=== PATIENT | female | born 1995 ===

== ENCOUNTER 2022-01-29 10:19 | Outpatient (CLI) | payer OTHER | END 2022-01-29 13:20 | disposition home or self-care (01) | LOC: PRENATAL 10:19 | PROVIDERS: ATTEND Obstetrics & Gynecology Maternal & Fetal Medicine | DX: O36.80X0 Pregnancy with inconclusive fetal viability, not applicable or unspecified (principal); Z36.0 Encounter for antenatal screening for chromosomal anomalies; Z3A.12 12 weeks gestation of pregnancy ==

== ENCOUNTER 2022-03-23 12:44 | Outpatient (CLI) | payer OTHER | END 2022-03-23 14:20 | disposition home or self-care (01) | LOC: PRENATAL 12:44 | PROVIDERS: ATTEND Obstetrics & Gynecology Maternal & Fetal Medicine | DX: O35.0XX0 Maternal care for (suspected) central nervous system malformation in fetus, not applicable or unspecified (principal); O35.3XX0 Maternal care for (suspected) damage to fetus from viral disease in mother, not applicable or unspecified; O26.879 Cervical shortening, unspecified trimester; Z3A.20 20 weeks gestation of pregnancy ==

== ENCOUNTER → 2022-03-24 | Emergency (ER) | payer OTHER ==
[~2022-03-24] MED LIST: PRENATAL TABLE1 EAC1 PO
== END | disposition home or self-care (01) ==
LOC: ER 22:25
DX: O46.92 Antepartum hemorrhage, unspecified, second trimester (principal); Z3A.22 22 weeks gestation of pregnancy

== ENCOUNTER 2022-03-25 00:29 | Outpatient (CLI) | payer OTHER ==
[2022-03-25] MEDS ORDERED: PRENATAL TABLE1 EAC1 PO (00:34)
== END 2022-03-25 11:17 | disposition home or self-care (01) ==
LOC: OBS/DEL 00:29
PROVIDERS: ATTEND Student in an Organized Health Care Education/Training Program
DX: O46.8X2 Other antepartum hemorrhage, second trimester (principal); Z3A.22 22 weeks gestation of pregnancy; N93.0 Postcoital and contact bleeding

== ENCOUNTER 2022-06-20 08:14 | Outpatient (CLI) | payer OTHER | END 2022-06-20 10:00 | disposition home or self-care (01) | LOC: PRENATAL 08:14 | PROVIDERS: ATTEND Obstetrics & Gynecology Maternal & Fetal Medicine | DX: O26.849 Uterine size-date discrepancy, unspecified trimester (principal); O36.8199 Decreased fetal movements, unspecified trimester, other fetus; O32.9XX0 Maternal care for malpresentation of fetus, unspecified, not applicable or unspecified; Z3A.32 32 weeks gestation of pregnancy ==

== ENCOUNTER 2022-08-08 13:01 | Inpatient (IN) | payer OTHER ==
[~2022-08-08] VITALS: Ht 170.2 cm; Wt 68.5 kg
[2022-08-12] MEDS ORDERED: DOCUSATE SODIU100 MG PO (12:43)
[2022-08-12] MEDS ORDERED: IBUPROFEN800 MG PO (12:43)
[2022-08-12] MEDS ORDERED: ACETAMINOPHEN-1 EAC2 PO (12:43)
== END 2022-08-12 13:03 | disposition home or self-care (01) | DRG 788 ==
LOC: O/R 08-09 07:53 → OB/GYN 08-09 07:53
PROVIDERS: ADMIT Obstetrics & Gynecology; ATTEND Obstetrics & Gynecology
PROC: 4A1HXCZ Monitoring of Products of Conception, Cardiac Rate, External Approach (ICD-10-PCS; 2022-08-09)
PROC: 10D00Z1 Extraction of Products of Conception, Low, Open Approach (ICD-10-PCS; principal; 2022-08-09 09:00)
DX: O32.1XX0 Maternal care for breech presentation, not applicable or unspecified (principal); Z37.0 Single live birth; Z20.822 Contact with and (suspected) exposure to COVID-19; Z3A.39 39 weeks gestation of pregnancy